=== PATIENT | female | born 1995 | race Caucasian/White ===

== ENCOUNTER 2021-04-05 16:09 | Outpatient (CLI) ==
[~2021-04-05] VITALS: Ht 162.6 cm; Wt 75.5 kg
[2021-04-05 16:25] VITALS: BP 127/80
[2021-04-05] MEDS ORDERED: PRENTAB9 PO (16:28)
[2021-04-05 17:42] VITALS: BP 117/55
== END 2021-04-05 18:40 | disposition home or self-care (01) ==
LOC: M LDO 16:09
PROVIDERS: ATTEND Obstetrics & Gynecology
DX: O60.03 Preterm labor without delivery, third trimester (principal); O26.893 Other specified pregnancy related conditions, third trimester; R10.2 Pelvic and perineal pain; Z3A.35 35 weeks gestation of pregnancy
CPT/HCPCS: 59025; G0378; G0463

== ENCOUNTER 2025-01-26 11:05 | Outpatient (CLI) | payer MEDICAID ==
[~2025-01-26] VITALS: Ht 162.6 cm; Wt 81.9 kg
[~2025-01-26 11:05] MED LIST: PRENTAB9 PO
[2025-01-26] MEDS ORDERED: HOME MED LIST COMPLETE! XX SCH (11:30)
[2025-01-26 11:32] VITALS: BP 119/66
[2025-01-26] MEDS ORDERED: LR 1,000 ML IV ONE (11:55)
== END 2025-01-26 12:38 | disposition home or self-care (01) ==
LOC: M LDO 11:05
PROVIDERS: ATTEND Obstetrics & Gynecology
DX: O47.03 False labor before 37 completed weeks of gestation, third trimester (principal); Z3A.29 29 weeks gestation of pregnancy; Z87.51 Personal history of pre-term labor
CPT/HCPCS: 59025; 82731; G0463